=== PATIENT | male | born 1955 | race Caucasian/White ===

== ENCOUNTER 2016-07-29 19:06 | Emergency (ER) | payer OTHER, BC ==
[2016-07-29] MEDS ORDERED: RANITIDINE HCL150 M2 PO (20:03)
[2016-07-29] MEDS ORDERED: OMEPRAZOLE40 M2 PO (20:04)
[2016-07-29] MEDS ORDERED: KEFLEX500 M4 PO (21:27)
[2016-07-29] MEDS ORDERED: NORCO 5-325 TA1 EACH PO (21:27)
== END 2016-07-29 21:33 ==
LOC: EDMED 19:06
PROC: 0HQRXZZ Repair Toe Nail, External Approach (ICD-10-PCS; principal; 2016-07-29)
DX: S97.121A Crushing injury of right lesser toe(s), initial encounter (principal); W20.8XXA Other cause of strike by thrown, projected or falling object, initial encounter; Y92.69 Other specified industrial and construction area as the place of occurrence of the external cause; Y99.0 Civilian activity done for income or pay

== ENCOUNTER 2016-08-23 06:55 | Emergency (ER) | payer BC, OTHER ==
[~2016-08-23 06:55] MED LIST: KEFLEX500 M4 PO; NORCO 5-325 TA1 EACH PO; OMEPRAZOLE40 M2 PO; RANITIDINE HCL150 M2 PO
[2016-08-23] MEDS ORDERED: MULTIVITAMINS1 EAC6 (07:04)
[2016-08-23] MEDS ORDERED: KEFLEX500 M4 PO (07:21)
== END 2016-08-23 07:35 ==
LOC: EDMED 06:55
DX: L53.9 Erythematous condition, unspecified (principal); K21.9 Gastro-esophageal reflux disease without esophagitis